=== PATIENT | female | born 1950 | race Two or more races ===

== ENCOUNTER 2017-07-01 13:10 | Outpatient (CLI) | payer OTHER ==
[~2017-07-01 13:10] MED LIST: ATORVASTATIN CA20 MG PO; CATAFLAN PO; CEFADROXIL500 MG PO; DIPHENHYDRAMINE PO; FAMOTIDINE40 MG/5 ML PO; INTEGRA PLUS C1 EACH PO; OXYC1TAB9 PO; PROZAC40 MG PO; RESTORIL30 M1 PO; SYNTHROID100 MCG PO; TORADOL60 MG; TRAM1TAB98 PO; XANAX1 MG PO; XARELTO10 MG PO
== END 2017-07-01 13:21 | disposition home or self-care (01) ==
LOC: LAB 13:10
DX: D69.6 Thrombocytopenia, unspecified (principal)

== ENCOUNTER 2017-07-05 20:19 | Inpatient (IN) | payer OTHER ==
[~2017-07-05] VITALS: Ht 170.2 cm; Wt 73.9 kg
[2017-07-09] MEDS ORDERED: XARELTO10 MG PO (08:52)
[2017-07-09] MEDS ORDERED: INTEGRA PLUS C1 EACH PO (08:52)
[2017-07-09] MEDS ORDERED: OXYC1TAB9 PO (08:52)
== END 2017-07-09 11:52 | DRG 467 ==
LOC: SURH 07-06 07:00 → O/R 07-06 08:35 → MEDI 07-06 22:34 → O/R 07-06 22:34 → SURG 07-07 09:58
PROVIDERS: Orthopaedic Surgery Sports Medicine
PROC: 0SRD0J9 Replacement of Left Knee Joint with Synthetic Substitute, Cemented, Open Approach (ICD-10-PCS; 2017-07-06)
PROC: 0SPD0JZ Removal of Synthetic Substitute from Left Knee Joint, Open Approach (ICD-10-PCS; principal; 2017-07-06 07:00)
DX: M17.12 Unilateral primary osteoarthritis, left knee (principal); T84.84XA Pain due to internal orthopedic prosthetic devices, implants and grafts, initial encounter; Y83.8 Other surgical procedures as the cause of abnormal reaction of the patient, or of later complication, without mention of misadventure at the time of the procedure; Y92.098 Other place in other non-institutional residence as the place of occurrence of the external cause; E03.8 Other specified hypothyroidism; M79.7 Fibromyalgia; M25.862 Other specified joint disorders, left knee; F32.9 Major depressive disorder, single episode, unspecified

== ENCOUNTER 2020-02-27 08:45 | Inpatient (IN) | payer OTHER ==
[~2020-02-27] VITALS: Ht 170.2 cm; Wt 78.9 kg
[2020-02-27] MEDS ORDERED: RESTORIL (12:59)
[2020-02-27] MEDS ORDERED: XANAX PO (13:00)
[2020-02-27] MEDS ORDERED: LIPITO PO (13:00)
[2020-02-27] MEDS ORDERED: PROZA PO (13:00)
[2020-03-06] MEDS ORDERED: ALPRAZOLAM1 MG PO (08:28)
[2020-03-06] MEDS ORDERED: SUCRALFATE1 GM PO (08:29)
[2020-03-06] MEDS ORDERED: DICLOFENAC POTA50 MG PO (08:34)
[2020-03-07] MEDS ORDERED: CODE1TAB37 PO (07:37)
[2020-03-07] MEDS ORDERED: INTEGRA PLUS C1 EACH PO (07:37)
[2020-03-07] MEDS ORDERED: BACTRIM DS TAB1 EACH PO (07:37)
[2020-03-07] MEDS ORDERED: XARELTO10 MG PO (07:37)
== END 2020-03-08 14:38 | DRG 468 ==
LOC: SURG 03-05 06:05 → O/R 03-05 06:05 → SURH 03-05 07:00 → SURG 03-05 20:32
PROVIDERS: ADMIT Orthopaedic Surgery Sports Medicine; ATTEND Orthopaedic Surgery Sports Medicine
PROC: 0SPD0JZ Removal of Synthetic Substitute from Left Knee Joint, Open Approach (ICD-10-PCS; 2020-03-05)
PROC: 0SRD0J9 Replacement of Left Knee Joint with Synthetic Substitute, Cemented, Open Approach (ICD-10-PCS; principal; 2020-03-05 07:00)
DX: T84.033A Mechanical loosening of internal left knee prosthetic joint, initial encounter (principal); E03.9 Hypothyroidism, unspecified; F32.9 Major depressive disorder, single episode, unspecified